=== PATIENT | female | born 1945 | race Caucasian/White ===

== ENCOUNTER 2020-05-15 11:41 | Inpatient (IN) | payer MEDICARE, OTHER ==
[~2020-05-15] VITALS: Ht 157.5 cm; Wt 75.1 kg
[2020-05-15] MEDS ORDERED: OMNIPAQUE 350 MG/ML, 100ML BOTTLE ONE (12:31)
[2020-05-15] MEDS ORDERED: LORazepam 2 MG/ML, 1ML ONE (12:51)
--- NOTE | 2020-05-15 13:09 | NUR ---
LATE ENTRY DUE TO PT CARE: PHYLLIS MEJIA, PT DRIVING [place]ILY [place] [address] FROM [facility], APPROX 30 MIN BEFORE ARRIVAL PT BECAME UNRESPONSIVE AND LEANED TO THE RIGHT, SAYING ONLY A FEW WORDS BUT NOT ANSWERING QUESTIONS, PER FAMILY PT HAD REPETATIVE JERKING MOTIONS RIGHT BEFORE ARRIVAL. PT HAS HX OF STROKE AND SEIZURES. PT CODE 250 FROM CANOPY STRAIGHT BACK TO T3, IV ESTABLISHED BY DIOGENES DEAN, EKG DONE AND PT TAKEN TO CT. IV INFILTRATED IN CT AND NEW IV ESTABLISHED. PT RETURNED FROM CT AND DAUGHTER AT BEDSIDE. DAUGHTER STATES "I THINK SHES JUST DEHYDRATED".
--- NOTE | 2020-05-15 13:11 | NUR ---
MD TO BEDSIDE PT SEEMINGLY HAVING SEIZURE ACTIVITY, PT LOOKING TO RIGHT AND MAKING GRUNTING NOISES WITH SOME FULL BODY TREMOR ACTIVITY. PER MD GIVE ATIVAN 1MG AND ADDITIONAL 1MG IF NO RELIEF OF SEIZURE ACTIVITY.
[2020-05-15] MEDS ORDERED: LISI-167 PO (13:16)
[2020-05-15] MEDS ORDERED: LEVE500T8 PO (13:16)
[2020-05-15] MEDS ORDERED: ATOR40TA PO (13:16)
[2020-05-15] MEDS ORDERED: FAMO20TA7 PO (13:16)
[2020-05-15] MEDS ORDERED: CARB25TA3 PO (13:16)
[2020-05-15] MEDS: LORazepam 2 MG/ML, 1ML IVPush ONE (13:16)
[2020-05-15 13:29] LABS: BASOPHILS # (AUTO) 0.04 x10^3/uL (0-0.1); BASOPHILS % (AUTO) 0 % (0-1); EOSINOPHILS # (AUTO) 0.13 x10^3/uL (0-0.4); EOSINOPHILS % (AUTO) 1 % (1-7); LYMPHOCYTES # (AUTO) 1.34 x10^3/uL (1-3.4); LYMPHOCYTES % (AUTO) 14 % (22-44); MD NO; MEAN CORPUSCULAR HEMOGLOBIN 32.5 pg (27.0-34.8); MEAN CORPUSCULAR HGB CONC 31.7 g/dL (32.4-35.8); MEAN CORPUSCULAR VOLUME 102.3 fL (80-100); MEAN PLATELET VOLUME 8.5 fL (7.4-10.4); MONOCYTES % (AUTO) 8 % (2-9); NEUTROPHILS # (AUTO) 7.21 x10^3/uL (1.8-6.8); NEUTROPHILS % (AUTO) 77 % (42-75); PLATELET COUNT 181 x10^3/uL (130-400); RED BLOOD COUNT 4.07 x10^6/uL (3.82-5.3); RED CELL DISTRIBUTION WIDTH 13.1 % (9.6-15.2)
[2020-05-15] MEDS ORDERED: PLEASE ENTER ALLERGIES MC SCH (13:30)
--- NOTE | 2020-05-15 13:33 | NUR ---
PHARMACY RETURNED CALL REGARDING INFILTRATED IV CONTRAST FOR L ARM, ARM ELEVATED AND WARM COMPRESS APPLIED
[2020-05-15 13:35] LABS: INTERNATIONAL NORMALIZED RATIO 0.93 (0.93-1.1); PROTHROMBIN TIME 9.9 Seconds (9.6-11.5)
--- NOTE | 2020-05-15 13:54 | NUR ---
SEIZURE ACTIVITY RESOLVED WITH ATIVAN 1MG, ADDITIONAL 1MG NOT GIVEN AND WASTED WITH RONALDO TANG RN
[2020-05-15] MEDS ORDERED: FILTER 0.22 MICRON FOR PHENYTOIN IV PRN (14:00)
[2020-05-15] MEDS ORDERED: PHENYTOIN SODIUM 1,000 MG in SODIUM CHLORIDE 0.9% 100 ML IV ONE (14:00)
--- NOTE | 2020-05-15 14:23 | NUR ---
TASK RN: DR NI AT BEDSIDE. REPORT TO JERMAINE DUARTE ON TELE2. PT PREPARED FOR TRANSPORT.
[2020-05-15] MEDS ORDERED: SODIUM CHLORIDE 0.9% 1,000 ML IV SCH (14:27)
[2020-05-15] MEDS ORDERED: SODIUM CHLORIDE FLUSH 10ML SYR IVF PRN (14:30)
[2020-05-15] MEDS ORDERED: ONDANSETRON 2MG/ML, 2ML IVPush PRN (14:30)
--- NOTE | 2020-05-15 14:51 | NUR ---
DENTURES REMOVED AND GIVEN TO PTS DAUGHTER WITH OTHER BELONGINGS (SHIRT AND SHOES)
[2020-05-15 15:14] VITALS: BP 98/52
[2020-05-15 19:06] VITALS: BP 104/56
[2020-05-15] MEDS ORDERED: LORazepam 2 MG/ML, 1ML IVPush PRN (20:00)
[2020-05-15] MEDS ORDERED: LEVETIRACETAM 500 MG in SODIUM CHLORIDE 0.9% 100 ML IV SCH (20:30)
[2020-05-15] MEDS ORDERED: ASPIRIN 300 MG SUPP PR ONE (20:30)
[2020-05-15] MEDS ORDERED: PHENYTOIN SODIUM 50 MG/ML, 2ML IVPush SCH (20:30)
[2020-05-15] MEDS: LEVETIRACETAM 1,500 MG in SODIUM CHLORIDE 0.9% 100 ML IV SCH (20:54)
[2020-05-15] MEDS: ATORVASTATIN 40 MG TABLET PO SCH (21:00)
[2020-05-15 21:08] LABS: ALANINE AMINOTRANSFERASE 12 U/L (12-78); ALBUMIN 3.4 g/dL (3.4-5.0); ANION GAP 6 mmol/L (5-15); CALCIUM 8.6 mg/dL (8.5-10.1); CHLORIDE 106 mmol/L (98-107)
[2020-05-15 21:10] LABS: ALKALINE PHOSPHATASE 76 U/L (45-117); BILIRUBIN,TOTAL 0.4 mg/dL (0.2-1.0); TOTAL PROTEIN 6.7 g/dL (6.4-8.2)
[2020-05-16 00:23] LABS: MICROSCOPIC NOT IND
[2020-05-16 01:17] VITALS: BP 98/53
[2020-05-16 05:44] LABS: MEAN CORPUSCULAR HEMOGLOBIN 32.8 pg (27.0-34.8); MEAN CORPUSCULAR HGB CONC 32.5 g/dL (32.4-35.8); MEAN CORPUSCULAR VOLUME 101.1 fL (80-100); MEAN PLATELET VOLUME 8.4 fL (7.4-10.4); PLATELET COUNT 157 x10^3/uL (130-400); RED BLOOD COUNT 3.24 x10^6/uL (3.82-5.3); RED CELL DISTRIBUTION WIDTH 12.9 % (9.6-15.2)
[2020-05-16 05:52] LABS: CHLORIDE 108 mmol/L (98-107)
[2020-05-16 06:17] LABS: ANION GAP 6 mmol/L (5-15); CALCIUM 8.5 mg/dL (8.5-10.1); CREATININE 0.96 mg/dL (0.55-1.02)
[2020-05-16 06:43] VITALS: BP 81/41
[2020-05-16 06:50] VITALS: BP_SYST 80; BP_DIAS 44; BP_DIAS 47
[2020-05-16] MEDS ORDERED: SODIUM CHLORIDE 0.9%, 250ML IVBOLUS ONE (07:00)
[2020-05-16 07:10] LABS: BASOPHILS # (AUTO) 0.03 x10^3/uL (0-0.1); BASOPHILS % (AUTO) 0 % (0-1); EOSINOPHILS # (AUTO) 0.16 x10^3/uL (0-0.4); EOSINOPHILS % (AUTO) 2 % (1-7); LYMPHOCYTES # (AUTO) 2.12 x10^3/uL (1-3.4); LYMPHOCYTES % (AUTO) 30 % (22-44); MD SCAN; MONOCYTES # (AUTO) 0.64 x10^3/uL (0.2-0.8); MONOCYTES % (AUTO) 9 % (2-9); NEUTROPHILS # (AUTO) 4.05 x10^3/uL (1.8-6.8); NEUTROPHILS % (AUTO) 58 % (42-75)
[2020-05-16 07:40] VITALS: BP 92/56
[2020-05-16] MEDS ORDERED: ASPIRIN 81 MG TABLET EC PO SCH (08:30)
[2020-05-16] MEDS ORDERED: ASPIRIN 300 MG SUPP PR SCH (09:00)
[2020-05-16] MEDS ORDERED: HEPARIN 5,000 UNITS/ML, 1ML IV PRN (09:30)
[2020-05-16] MEDS ORDERED: HEPARIN 5,000 UNITS/ML, 1ML IV ONE (09:30)
[2020-05-16] MEDS: LEVETIRACETAM 1,500 MG in SODIUM CHLORIDE 0.9% 100 ML IV SCH ×2 (09:33→21:20)
[2020-05-16] MEDS: HEPARIN 25,000 UNITS/250ML PMX 250 ML IV PRN (12:06)
[2020-05-16 14:35] VITALS: BP 90/49
[2020-05-16 18:26] VITALS: BP 94/52
[2020-05-16] MEDS: ATORVASTATIN 40 MG TABLET PO SCH (21:20)
[2020-05-17 01:46] VITALS: BP 91/54
[2020-05-17 04:59] LABS: BASOPHILS # (AUTO) 0.04 x10^3/uL (0-0.1); BASOPHILS % (AUTO) 1 % (0-1); EOSINOPHILS # (AUTO) 0.09 x10^3/uL (0-0.4); EOSINOPHILS % (AUTO) 1 % (1-7); LYMPHOCYTES # (AUTO) 1.75 x10^3/uL (1-3.4); LYMPHOCYTES % (AUTO) 27 % (22-44); MD NO; MEAN CORPUSCULAR HEMOGLOBIN 33.5 pg (27.0-34.8); MEAN CORPUSCULAR HGB CONC 33.6 g/dL (32.4-35.8); MEAN CORPUSCULAR VOLUME 99.7 fL (80-100); MEAN PLATELET VOLUME 9.5 fL (7.4-10.4); MONOCYTES # (AUTO) 0.58 x10^3/uL (0.2-0.8); MONOCYTES % (AUTO) 9 % (2-9); NEUTROPHILS # (AUTO) 3.98 x10^3/uL (1.8-6.8); NEUTROPHILS % (AUTO) 62 % (42-75); PLATELET COUNT 146 x10^3/uL (130-400); RED BLOOD COUNT 3.06 x10^6/uL (3.82-5.3); RED CELL DISTRIBUTION WIDTH 12.9 % (9.6-15.2)
[2020-05-17 05:21] LABS: CHLORIDE 109 mmol/L (98-107)
[2020-05-17 05:26] LABS: ALANINE AMINOTRANSFERASE 11 U/L (12-78); ALBUMIN 2.8 g/dL (3.4-5.0); ALKALINE PHOSPHATASE 74 U/L (45-117); ANION GAP 5 mmol/L (5-15); BILIRUBIN,TOTAL 0.4 mg/dL (0.2-1.0); CALCIUM 8.2 mg/dL (8.5-10.1); CREATININE 0.84 mg/dL (0.55-1.02); TOTAL PROTEIN 5.8 g/dL (6.4-8.2)
[2020-05-17] MEDS: ASPIRIN 81 MG TABLET EC PO SCH (05:57)
[2020-05-17 06:47] VITALS: BP 89/49
[2020-05-17] MEDS ORDERED: FUROSEMIDE 40 MG/4 ML IV SCH (08:30)
[2020-05-17] MEDS: CYANOCOBALAMIN 1,000 MCG TABLET PO SCH (08:48)
[2020-05-17] MEDS: LEVETIRACETAM 1,500 MG in SODIUM CHLORIDE 0.9% 100 ML IV SCH ×2 (10:12→22:33)
[2020-05-17 12:42] VITALS: BP 85/43
[2020-05-17 13:30] VITALS: BP 82/44
[2020-05-17] MEDS ORDERED: SODIUM CHLORIDE 0.9%, 500ML IVBOLUS ONE (13:30)
[2020-05-17 13:39] VITALS: BP 92/54
[2020-05-17] MEDS: SODIUM CHLORIDE 0.9% 1,000 ML IV SCH (14:23)
[2020-05-17] MEDS: HEPARIN 25,000 UNITS/250ML PMX 250 ML IV PRN (18:47)
[2020-05-17 19:23] VITALS: BP 95/52
[2020-05-17] MEDS: ATORVASTATIN 40 MG TABLET PO SCH (20:18)
[2020-05-18 00:20] VITALS: BP 110/65
[2020-05-18] MEDS: SODIUM CHLORIDE 0.9% 1,000 ML IV SCH (04:02)
[2020-05-18] MEDS: ASPIRIN 81 MG TABLET EC PO SCH (05:27)
[2020-05-18 07:27] VITALS: BP 91/50
[2020-05-18] MEDS ORDERED: CYANOCOBALAMIN 1,000 MCG TABLET PO SCH (09:00)
[2020-05-18 10:09] VITALS: BP 111/56
[2020-05-18] MEDS ORDERED: LEVETIRACETAM 1,500 MG in SODIUM CHLORIDE 0.9% 100 ML IV ONE (11:30)
[2020-05-18] MEDS: CYANOCOBALAMIN 1,000 MCG TABLET PO SCH (11:42)
[2020-05-18] MEDS ORDERED: REGADENOSON 0.4 MG/5 ML SYRINGE ONE (11:54)
[2020-05-18 12:47] VITALS: BP 102/66
[2020-05-18] MEDS ORDERED: CYAN-27 PO (15:37)
[2020-05-18] MEDS ORDERED: LEVE500T53 PO (15:37)
[2020-05-18] MEDS ORDERED: ASPI81TA45 PO (15:37)
[2020-05-18] MEDS ORDERED: LEVETIRACETAM 500 MG TABLET PO SCH (21:00)
== END 2020-05-18 18:29 | disposition home or self-care (01) | DRG 100 ==
LOC: ED 13:23 → 4EST 15:11
PROVIDERS: ADMIT Internal Medicine; ATTEND Internal Medicine
PROC: 4A10X4Z Monitoring of Central Nervous Electrical Activity, External Approach (ICD-10-PCS; principal; 2020-05-15)
DX: G40.409 Other generalized epilepsy and epileptic syndromes, not intractable, without status epilepticus (principal); G93.41 Metabolic encephalopathy; I21.A1 Myocardial infarction type 2; I42.9 Cardiomyopathy, unspecified; I50.32 Chronic diastolic (congestive) heart failure; I44.7 Left bundle-branch block, unspecified; I25.5 Ischemic cardiomyopathy; I73.9 Peripheral vascular disease, unspecified; I50.9 Heart failure, unspecified; I11.0 Hypertensive heart disease with heart failure; D53.9 Nutritional anemia, unspecified; Z72.0 Tobacco use; Z86.73 Personal history of transient ischemic attack (TIA), and cerebral infarction without residual deficits; Z79.899 Other long term (current) drug therapy
CPT/HCPCS: 36415; 70450; 70496; 70498; 70551; 78452; 80047; 80048; 80053; 81003; 82533; 82607; 82962; 83735; 84443; 84484; 85025; 85520; 85610; 85730; 93005; 93017; 93306; 95819; G0378; J1165; J1644; J1953; J2785; Q9967; A9502; C9898; J2060; J7030; J7040; J7050